=== PATIENT | female | born 1945 | race Caucasian/White ===

== ENCOUNTER → 2016-09-09 | Day surgery (SDC) | payer MEDICARE, OTHER ==
[~2016-09-09] MED LIST: Lactated Ringers 1,000 ML IV SCH; Midazolam 1 MG/ML 2 ML SDV IV ONE; Propofol 200 MG/20 ML SDV IV ONE
--- NOTE | 2016-09-09 09:15 | PCM.OPNOTE ---
- General Post-Op/Procedure Note Date of Surgery/Procedure: 09/09/16 Operative Procedure(s): c scope with bx Findings: colon polyps hepatic, transverse and descending colon x2 Pre Op Diagnosis: screening Post-Op Diagnosis: colon polyps hepatic, transverse and descending colon x2 Anesthesia Technique: MAC Primary Surgeon: Wisam Harkins Anesthesia Provider: Chaya Voss Pathology: colon polyps hepatic, transverse and descending colon x2 Complications: None Condition: Good Free Text/Narrative:: see dictation
[2016-09-09 10:13] VITALS: BP 156/85
--- NOTE | 2016-09-09 14:28 | OR ---
DATE OF OPERATION: 09/09/2016 SURGEON: Wisam Harkins MD PROCEDURE PERFORMED: Colonoscopy with hot loop and cold forceps biopsy. PREOPERATIVE DIAGNOSIS: Screening colonoscopy. POSTOPERATIVE DIAGNOSIS: Polyp hepatic flexure, polyp with transverse colon, polyp of descending colon x2. INDICATIONS FOR PROCEDURE: This is a 71-year-old white female, who is referred for a screening colonoscopy. She was offered and accepted. DESCRIPTION OF OPERATION: After an excellent IV sedation was administered, digital rectal exam was performed. No marked abnormality was noted. Flexible colonoscope was inserted and advanced to the cecum without difficulty. The following findings were noted. Ascending colon, unremarkable. Transverse colon; at the hepatic flexure, a sessile lesion biopsied with a hot loop snare and retrieved via the polyp trap. Proximal transverse colon, an additional polyp biopsied with a hot loop snare and retrieved via the colon trap. Descending colon; at the proximal descending colon, 2 small polypoid lesions biopsied with a cold biopsy forceps and submitted in 1 container. Sigmoid and rectum are unremarkable. Colon was deflated. Scope was removed. The patient tolerated the procedure well, and was taken to recovery in good condition. /[id number] /MODL
== END | disposition home or self-care (01) ==
LOC: FB.SDS 07:13
PROVIDERS: ATTEND Surgery
DX: Z12.11 Encounter for screening for malignant neoplasm of colon (principal); D12.3 Benign neoplasm of transverse colon; D12.4 Benign neoplasm of descending colon; I10 Essential (primary) hypertension; Z79.82 Long term (current) use of aspirin; Z79.899 Other long term (current) drug therapy; Z98.890 Other specified postprocedural states
CPT/HCPCS: 00810; 45380; 45385; 88305; J2250; J2704; J7120

== ENCOUNTER 2017-05-01 06:40 | Day surgery (SDC) | payer MEDICARE, OTHER ==
[2017-05-01] MEDS ORDERED: Sodium Chloride 0.9% 10 ML Syringe FLUSH PRN (06:45)
[2017-05-01] MEDS: Lactated Ringers 1,000 ML IV SCH (07:36)
[2017-05-01] MEDS ORDERED: Midazolam 1 MG/ML 2 ML SDV IV ONE (08:00)
[2017-05-01] MEDS ORDERED: Propofol 200 MG/20 ML SDV IV ONE (08:00)
--- NOTE | 2017-05-01 08:33 | PCM.OPNOTE ---
- General Post-Op/Procedure Note Date of Surgery/Procedure: 05/01/17 Operative Procedure(s): c scope with bx Findings: tranverse colon polyps x2 descending colon polyp x2 Pre Op Diagnosis: hx of colon polyps Post-Op Diagnosis: tranverse colon polyps x2. descending colon polyp x2 Anesthesia Technique: MAC Primary Surgeon: Wisam Harkins Anesthesia Provider: Chaya Voss Pathology: tranverse colon polyps x2 descending colon polyp x2 Condition: Good Free Text/Narrative:: see dictation
[2017-05-01 09:20] VITALS: BP 128/67
--- NOTE | 2017-05-01 12:58 | OR ---
DATE OF OPERATION: 05/01/2017 SURGEON: Wisam Harkins MD PROCEDURE PERFORMED: Colonoscopy. PREOPERATIVE DIAGNOSIS: Personal history of dysplastic colon polyps. POSTOPERATIVE DIAGNOSIS: Polyps of the proximal transverse colon, distal transverse colon, and descending colon x2. INDICATIONS FOR PROCEDURE: This is a 71-year-old white female with a personal history of dysplastic colon polyps, presenting for a followup colonoscopy. She was offered and accepted C-scope. DESCRIPTION OF PROCEDURE: After an excellent IV sedation was administered, digital rectal exam was performed. No marked abnormality was noted. Flexible colonoscope was inserted and advanced to the cecum without difficulty. The following findings were noted. Ascending colon, unremarkable. Transverse colon; at the proximal transverse colon, a small polyp, biopsied with the biopsy forceps and sent for permanent. Distal transverse colon, another polyp, tiny, biopsied with cold biopsy forceps and sent for permanent. In the descending colon, within 2 cm of each other, there were 2 more polyps, these again were biopsied with cold biopsy forceps and sent for permanent. The sigmoid and rectum were unremarkable. Colon was deflated. Scope was removed. The patient tolerated the procedure well and was taken to recovery room in a good condition. /[id number] /MODL
== END 2017-05-01 09:45 | disposition home or self-care (01) ==
LOC: FB.SDS 06:40
PROVIDERS: ATTEND Surgery
DX: Z12.11 Encounter for screening for malignant neoplasm of colon (principal); D12.4 Benign neoplasm of descending colon; K63.5 Polyp of colon; K52.89 Other specified noninfective gastroenteritis and colitis; I10 Essential (primary) hypertension; Z86.010 Personal history of colon polyps; Z79.82 Long term (current) use of aspirin; Z79.899 Other long term (current) drug therapy
CPT/HCPCS: 00811; 45380; 88305; J2250; J2704; J7120

== ENCOUNTER 2018-07-13 17:28 | Emergency (ER) | payer MEDICARE, OTHER ==
[2018-07-13] MEDS ORDERED: Sodium Chloride 0.9% 10 ML Syringe FLUSH PRN (19:11)
--- NOTE | 2018-07-13 19:17 | EDM.PDOC ---
ED HPI GENERAL MEDICAL PROBLEM - General Chief Complaint: Lower Extremity Injury/Pain Stated Complaint: L ANKLE PAIN Time Seen by Provider: 07/13/18 19:05 Source of Information: Reports: Patient, Family, Old Records History Limitations: Reports: No Limitations - History of Present Illness INITIAL COMMENTS - FREE TEXT/NARRATIVE: Constanza arrives at [facility] ED accompanied by family with a L ankle injury that occurred at home about 4:00 pm unwitnessed. 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 There is obvious deformity of the distal tibia, CMS intact, with ecchymoses. She took her seizure meds before coming to the ED. LEFT ANKLE Pain Score (Numeric/FACES): 8 - Related Data Allergies Allergy/AdvReac Type Severity Reaction Status Date / Time No Known Allergies Allergy Verified 07/13/18 18:43 Home Meds: Home Meds Lutein/Minerals/Vit A,C & E [Ocuvite] 1 tab PO DAILY 01/28/13 [History] levETIRAcetam [Keppra XR] 1,000 mg PO TID 01/28/13 [History] Aspirin [Adult Low Dose Aspirin EC] 81 mg PO DAILY 09/08/16 [History] Gabapentin [Neurontin] 900 mg PO TID 09/08/16 [History] lamoTRIgine [Lamictal] 150 mg PO BID 09/08/16 [History] Losartan/Hydrochlorothiazide [Losartan-HCTZ 100-12.5 MG] 1 each PO DAILY [History] Metoprolol Succinate [Toprol XL] 25 mg PO DAILY 04/28/17 [History] Potassium Chloride 10 meq PO DAILY #50 cap.er 11/09/17 [Rx] Past Medical History HEENT History: Reports: Impaired Vision, Macular Degeneration Cardiovascular History: Reports: Hypertension Gastrointestinal History: Reports: Colon Polyp METER INSTALLER History: Reports: Other METER INSTALLER History: IV PARA V. Musculoskeletal History: Reports: Fracture Other Musculoskeletal History: FX LEFT ARM. CLOSED REDUCTION Neurological History: Reports: Seizure Other Neuro History: takes meds Psychiatric History: Reports: Learning Disability Endocrine/Metabolic History: Reports: Obesity/BMI 30+, Osteopenia Hematologic History: Reports: Other (See Below) Other Hematologic History: LEIDEN'S FACTOR V - Infectious Disease History Infectious Disease History: Reports: Chicken Pox - Past Surgical History Head Surgeries/Procedures: Reports: None HEENT Surgical History: Reports: Cataract Surgery Other HEENT Surgeries/Procedures: BILATERAL PHACO IOL. STATES HAD PROCEDURES FOR MACULAR DEGENERATION. GI Surgical History: Reports: Colonoscopy Female Surgical History: Reports: Section, Tubal Ligation Social & Family History - Family History Family Medical History: Noncontributory GI: Reports: None - Caffeine Use Caffeine Use: Reports: Coffee Review of Systems - Review of Systems Review Of Systems: ROS reveals no pertinent complaints other than HPI. ED EXAM, GENERAL - Physical Exam Exam: See Below Exam Limited By: No Limitations General Appearance: Alert, WD/WN, Mild Distress Eye Exam: Bilateral Eye: EOMI, Normal Inspection, PERRL Ears: Normal External Exam Nose: Normal Inspection Throat/Mouth: Normal Inspection, Normal Lips, Normal Oropharynx, Normal Voice Head: Atraumatic, Normocephalic Neck: Normal Inspection, Supple, Full Range of Motion Respiratory/Chest: Lungs Clear, Normal Breath Sounds, Chest Non-Tender Cardiovascular: Regular Rate, Rhythm, No Murmur GI/Abdominal: Normal Bowel Sounds, Soft, Non-Tender, No Organomegaly, No Distention, No Mass (Female) Exam: Deferred Rectal (Female) Exam: Deferred Back Exam: Normal Inspection Extremities: Limited Range of Motion (L ankle: deformity at the tibial calcaneal junction with eccymoses) Neurological: Alert, Oriented, CN II-XII Intact, Normal Cognition, No Motor/ Sensory Deficits Psychiatric: Normal Affect, Normal Mood Skin Exam: Warm, Dry, Ecchymosis Lymphatic: No Adenopathy ED TRAUMA EXTREMITY PROCEDURES - Joint Reduction Site: Other (left ankle) Sedation: Other (Fentanyl 100 mcg IM) Pre-Procedure NV Status: Normal Post-Procedure NV Status: Normal Technique: Traction/Counter Traction Number of Attempts: 1 Post-Reduction Imaging: Acceptably Reduced Joint Reduction Complications: No - Splinting Left Lower Extremity Splint Site: L ankle Pre-Procedure NV Status: Normal Post-Procedure NV Status: Normal Splint Material: Other (Ortho-Glass) Splint Design: Stirrup, Posterior Applied & Form Fitted By: Provider Provider Post-Splint Application NV Check: NV Status Normal Complications: No Course - Vital Signs Text/Narrative:: With patient consent, I administered Fentanyl 100 mcg IM, and following a period of observation, I performed a closed reduction of the ankle. A follow up x ray confirms improved positioning. I spoke with Dr. Forte, correctional supply supervisor orthopedist at [facility]; Dr Hodgson from [facility] ED will assume care upon transfer. Last Recorded V/S: Last Vital Signs Temp 37.1 C 07/13/18 17:30 Pulse 78 07/13/18 17:30 Resp 16 07/13/18 17:30 BP 173/76 H 07/13/18 17:30 Pulse Ox 95 07/13/18 17:30 - Orders/Labs/Meds Orders: Active Orders 24 hr Category Date Time Status Ankle 2V Lt [CR] Stat Exams 07/13/18 20:10 Taken Ankle Min 3V Lt [CR] Stat Exams 07/13/18 19:10 Taken Meds: Medications Discontinued Medications Generic Name Dose Route Start Last Admin Trade Name Freq PRN Reason Stop Dose Admin Fentanyl 100 mcg 07/13/18 19:38 07/13/18 19:55 Sublimaze IM 07/13/18 19:39 100 mcg ONETIME ONE Administration Fentanyl Confirm 07/13/18 19:50 Sublimaze Administered 07/13/18 19:51 Dose 100 mcg .ROUTE .STK-MED ONE Departure - Departure Time of Disposition: 20:40 Disposition: DC/Tfer to Other 70 Condition: Fair Clinical Impression: Dislocation of left ankle joint, initial encounter Closed fracture of left fibula Qualifiers: Encounter type: initial encounter Fibula location: lateral malleolus Fracture alignment: displaced Qualified Code(s): S82.62XA - Displaced fracture of lateral malleolus of left fibula, initial encounter for closed fracture - Discharge Information *PRESCRIPTION DRUG MONITORING PROGRAM REVIEWED*: Not Applicable *COPY OF PRESCRIPTION DRUG MONITORING REPORT IN PATIENT GLADIS: Not Applicable Referrals: Lela Edmonds PA [Primary Care Provider] - Forms: ED Department Discharge - Problem List & Annotations (1) Closed fracture of left fibula SNOMED Code(s): 335301470 Code(s): S82.402A - UNSP FRACTURE OF SHAFT OF LEFT FIBULA, INIT FOR CLOS FX Status: Acute Current Visit: Yes Annotation/Comment:: Stirrup-Post Splint applied, CMS intact, to transfer to [facility]. Qualifiers: Encounter type: initial encounter Fibula location: lateral malleolus Fracture alignment: displaced Qualified Code(s): S82.62XA - Displaced fracture of lateral malleolus of left fibula, initial encounter for closed fracture (2) Dislocation of left ankle joint, initial encounter SNOMED Code(s): 815043689 Code(s): S93.05XA - DISLOCATION OF LEFT ANKLE JOINT, INITIAL ENCOUNTER Status: Acute Current Visit: Yes Annotation/Comment:: Post reduction looks fine, CMS intact, transfer to [facility] for consult with Dr Forte. - Problem List Review Problem List Initiated/Reviewed/Updated: Yes - My Orders Last 24 Hours: My Active Orders 07/13/18 19:10 Ankle Min 3V Lt [CR] Stat 07/13/18 20:10 Ankle 2V Lt [CR] Stat - Assessment/Plan Last 24 Hours: My Active Orders 07/13/18 19:10 Ankle Min 3V Lt [CR] Stat 07/13/18 20:10 Ankle 2V Lt [CR] Stat Plan: Follow up with PCP.
[2018-07-13] MEDS ORDERED: fentaNYL 100 MCG/2 ML SDV IM ONE (19:38)
[2018-07-13] MEDS ORDERED: fentaNYL 100 MCG/2 ML SDV ONE (19:50)
[2018-07-13 21:45] VITALS: BP 154/85
--- NOTE | 2018-07-16 10:45 | CR ---
INDICATION: Seizure and fell onto left ankle. LEFT ANKLE: Three views of the left ankle revealed an oblique fracture through the distal shaft, extending through the metaphysis of the distal fibula with fairly prominent medial angulation of the fracture site and appearance of overriding fracture fragments with lateral offset of the distal fracture fragment to a minimal degree. There is dislocation laterally and posteriorly of the talus with respect to the tibia. An avulsion chip fracture fragment may also be present along the medial aspect of the talus. No other bone or joint abnormality was identified. MTDD
== END 2018-07-13 20:40 | disposition other institution (70) ==
LOC: FB.ED 17:28
DX: S82.62XA Displaced fracture of lateral malleolus of left fibula, initial encounter for closed fracture (principal); S93.05XA Dislocation of left ankle joint, initial encounter; Z79.899 Other long term (current) drug therapy; Z79.82 Long term (current) use of aspirin; X58.XXXA Exposure to other specified factors, initial encounter
CPT/HCPCS: 29515; 73600; 73610; 96372; 99284; J3010